=== PATIENT | male | born 1950 | race Caucasian/White ===

== ENCOUNTER 2024-07-21 11:08 | Outpatient (OUT) | payer MEDICARE, SELFPAY ==
--- NOTE | 2024-07-21 11:09 | ECG_ITS ---
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
[2024-07-21 12:04] LABS: Basophils Absolute Auto 0.1 10^3/uL (0.0-0.1); Basophils Percent Auto 0.7 % (0.2-2.0); Eosinophils Absolute Auto 0.3 10^3/uL (0.0-0.7); Eosinophils Percent Auto 4.7 % (0.9-7.0); Hematocrit 44.7 % (42.0-54.0); Hemoglobin 15.3 g/dL (14.0-18.0); Immature Granulocytes Abs Auto 0.02 10^3/uL (0.00-0.03); Immature Granulocytes Pct Auto 0.3 % (0.0-0.5); Lymphocytes Absolute Auto 1.8 10^3/uL (1.2-3.8); Lymphocytes Percent Auto 26.2 % (20.5-60.0); Mean Corpuscular HGB Conc 34.2 g/dL (29.9-35.2); Mean Corpuscular Hemoglobin 31.3 pg (25.9-34.0); Mean Corpuscular Volume 91.4 fL (80.0-94.0); Mean Platelet Volume 10.9 fL (9.5-13.5); Monocytes Absolute Auto 0.7 10^3/uL (0.3-0.8); Monocytes Percent Auto 10.4 % (1.7-12.0); Neutrophils Absolute Auto 3.9 10^3/uL (1.4-6.5); Neutrophils Percent Auto 57.7 % (43.0-75.0); Platelet Count 225 10^3/uL (150-450); Red Blood Count 4.89 10^6/uL (4.70-6.10); Red Cell Distribution Width 12.4 % (11.0-15.0); White Blood Count 6.8 10^3/uL (4.0-11.0)
[2024-07-21 12:05] LABS: Bilirubin Urine NEGATIVE (NEGATIVE); Blood Urine NEGATIVE (NEGATIVE); Clarity Urine CLEAR (CLEAR); Color Urine YELLOW (YELLOW); Glucose Urine UA NEGATIVE (NEGATIVE); Ketones Urine NEGATIVE (NEGATIVE); Leukocyte Esterase Urine NEGATIVE (NEGATIVE); Nitrite Urine NEGATIVE (NEGATIVE); Protein Urine NEGATIVE (NEG/TRACE); Specific Gravity Urine >=1.030 (1.005-1.025); Urobilinogen Urine 0.2 EU/dL (0.2-1.0); pH Urine 5.5 (5.0-9.0)
[2024-07-21 12:08] LABS: Urine Microscopic Indicated NO
[2024-07-21 12:41] LABS: Anion Gap 9.8; BUN Creatinine Ratio 17.2; Calcium 8.5 mg/dL (8.5-10.1); Carbon Dioxide 28.4 mmol/L (21.0-32.0); Chloride 106 mmol/L (98-107); Estimated GFR (African America >60 (>=60 mL/min/1.73m^2); Estimated GFR (Non-African Ame >60 (>=60 mL/min/1.73m^2); Glucose 135 mg/dL (74-106); Potassium 4.2 mmol/L (3.5-5.1); Sodium 140 mmol/L (136-145)
--- NOTE | 2024-07-21 12:59 | PM.PRESUREVA ---
History of Present Illness History of Present Illness Chief complaint: Elevated PSA Narrative: Patient presents for presurgical testing. The patient states he had an abnormal PSA with intermittent urinary frequency and a weak urine stream. He denies abdominal pain, nausea, vomiting, dysuria, hematuria, or any other complaints. Review of Systems ROS Narrative REVIEW OF SYSTEMS: Negative except as stated in HPI, ten or more systems reviewed. Constitutional: No fever, chills, weakness ENT: No sore throat or epistaxis Cardiovascular: No edema, chest pain, or palpitations; admits to dyspnea on exertion Respiratory: No shortness of breath, cough, or wheezing Musculoskeletal: No joint pain or swelling Gastrointestinal: No abdominal pain, constipation, diarrhea, or vomiting Genitourinary: No dysuria or hematuria Neurological: No numbness, tingling, weakness, or headache Psychiatric: No mood changes PFSH [facility] Medical History (Updated 07/21/24 @ 11:57 by Jaclyn Rivera NP) Hydrocele ?N43.3 - Hydrocele, unspecified (ICD-10) Carpal tunnel syndrome ?G56.00 - Carpal tunnel syndrome, unspecified upper limb (ICD-10) Enlarged prostate ?N40.0 - Benign prostatic hyperplasia without lower urinary tract symptoms (ICD-10) Polyp of colon ?K63.5 - Polyp of colon (ICD-10) History of blood transfusion ?Z92.89 - Personal history of other medical treatment (ICD-10) GERD (gastroesophageal reflux disease) ?K21.9 - Gastro-esophageal reflux disease without esophagitis (ICD-10) Shoulder pain ?M25.519 - Pain in unspecified shoulder (ICD-10) Arthritis ?M19.90 - Unspecified osteoarthritis, unspecified site (ICD-10) Sleep apnea ?G47.30 - Sleep apnea, unspecified (ICD-10) Kidney stones ?N20.0 - Calculus of kidney (ICD-10) Elevated PSA ?R97.20 - Elevated prostate specific antigen [PSA] (ICD-10) Seasonal allergies ?J30.2 - Other seasonal allergic rhinitis (ICD-10) Hypertension ?I10 - Essential (primary) hypertension (ICD-10) High cholesterol ?E78.00 - Pure hypercholesterolemia, unspecified (ICD-10) Dyspnea on exertion ?R06.09 - Other forms of dyspnea (ICD-10) Prediabetes ?R73.03 - Prediabetes (ICD-10) S/P extracorporeal shock wave therapy ?Z98.890 - Other specified postprocedural states (ICD-10) Surgical History (Updated 07/21/24 @ 11:57 by Jaclyn Rivera NP) History of cataract extraction with lens replacement History of hydrocelectomy ?Z98.890 - Other specified postprocedural states (ICD-10) History of carpal tunnel surgery ?Z98.890 - Other specified postprocedural states (ICD-10) History of carpal tunnel release ?Z98.890 - Other specified postprocedural states (ICD-10) S/P cataract extraction and insertion of intraocular lens ?Z98.49 - Cataract extraction status, unspecified eye (ICD-10) ?Z96.1 - Presence of intraocular lens (ICD-10) History of colonoscopy ?Z98.890 - Other specified postprocedural states (ICD-10) History of total hip arthroplasty ?Z96.649 - Presence of unspecified artificial hip joint (ICD-10) Family History (Updated 07/21/24 @ 11:31 by Jaclyn Rivera NP) Other Family history of cancer Family history of diabetes mellitus Family history of hypertension Family history of stroke Social History (Updated 07/21/24 @ 11:28 by Jaclyn Rivera NP) Within the past year, how often did you have a drink containing alcohol: monthly or less Smoking status: Never smoker Non-prescribed substance use: denies use Highest level of school completed/degree received: Associate degree: academic program Meds Home Medications and Allergies Home Medications ?Medication ?Instructions ?Recorded ?Confirmed ?Type amlodipine 10 mg-benazepril 20 mg 1 cap PO QPM 07/21/24 07/21/24 History capsule ibuprofen 800 mg tablet (IBU) 800 mg PO Q8H PRN pain 07/21/24 07/21/24 History magnesium citrate 100 mg capsule 100 mg PO DAILY 07/21/24 07/21/24 History metoprolol succinate 100 mg 100 mg PO QPM 07/21/24 07/21/24 History tablet,extended release 24 hr psyllium husk 0.4 gram capsule 0.4 g PO DAILY 07/21/24 07/21/24 History (Metamucil) rosuvastatin 20 mg tablet 20 mg PO QPM 07/21/24 07/21/24 History tamsulosin 0.4 mg capsule 0.4 mg PO Q24H 07/21/24 07/21/24 History Allergies Allergy/AdvReac Type Severity Reaction Status Date / Time Penicillins Allergy Unknown Verified 07/21/24 11:26 Exam Narrative Exam Narrative: Constitutional: Awake, alert, comfortable, well-appearing, nontoxic, interactive, vital signs as charted Head: Normocephalic, atraumatic Neck: Supple, normal appearance, normal range of motion, no meningeal signs, no lymphadenopathy Respiratory: No respiratory distress, breath sounds clear Cardiovascular: Regular rate and rhythm, strong and regular heart tones Abdomen: Nontender, normal bowel sounds, soft, no CVA tenderness Musculoskeletal: Normal gait, no swelling or edema Skin: No rashes or induration, no lesions, only visible skin inspected Neuro: No neurological deficits, normal sensation Psychiatric: Oriented ?3, normal affect Assessment and Plan Assessment and Plan (1) Elevated PSA: (2) Enlarged prostate: Plan MRI fusion transperineal prostate biopsy scheduled with Dr. Teran August 02, 2024.
== END 2024-07-21 11:09 | disposition home or self-care (01) ==
LOC: PST 11:09
PROVIDERS: PCP Internal Medicine; Visit Provider Urology
DX: Z01.810 Encounter for preprocedural cardiovascular examination (principal); Z01.812 Encounter for preprocedural laboratory examination; Z01.818 Encounter for other preprocedural examination; N40.1 Benign prostatic hyperplasia with lower urinary tract symptoms; R97.20 Elevated prostate specific antigen [PSA]
CPT/HCPCS: 36415; 80048; 81003; 85025; 85610; 85730; 93005; G0463

== ENCOUNTER 2024-08-02 11:59 | Day surgery (SDC) | payer MEDICARE, SELFPAY ==
[2024-07-21 11:53] VITALS: BP 124/64; PULSE 59; TEMP 36.6; O2SAT 98; BMI 46.2
[2024-08-02] VITALS (7 sets, daily range): BP systolic 111–173; BP diastolic 66–88; PULSE 52–69; TEMP 36.2; O2SAT 95–97; BMI 45.8
[2024-08-02 12:22] LABS: Partial Thromboplastin Time 26.6 sec (22.3-36.2)
[2024-08-02] MEDS: LACTATED RINGER'S SOLUTION 1,000 ML 50 ML IV (12:48)
[2024-08-02] MEDS: CEFAZOLIN SODIUM 2 GM/50 ML D5W PREMIX IV (13:17)
[2024-08-02 13:35] LABS: INR 1.04
[2024-08-02] MEDS: LIDOCAINE 2% JELLY 20 ML UR (13:49)
[2024-08-02] MEDS: LIDOCAINE HCL 1% 100 MG/10 ML MDV INJ (13:54)
[2024-08-02] MEDS: BACITRACIN OINTMENT 28.4 GM TUBE 1 APPLIC TOPICAL (14:12)
--- NOTE | 2024-08-02 14:29 | PM.URSON ---
Urology Surgery Operative Note Operative Note Procedure Date: 08/02/24 Time Out Performed: yes Pre-op Diagnosis: 1. Elevated PSA 2. Abnormal MRI 3. Bladder stones Post-op Diagnosis: same as pre-op Procedures performed: 1. MRI fusion prostate biopsy, transperineal approach 2. Ultrasound for needle prostate biopsy, transperineal approach 3. Transrectal ultrasound of prostate and seminal vesicles 4. Nerve block of prostate 5. Cystoscopy Anesthesia: MAC Primary Surgeon: Yanni Teran Complications: none Estimated blood loss (mL): 1 Findings: Cysto- Severe bilobar prostatomegaly with significantly elevated bladder neck. At least 5 smooth yellow bladder stones inferior to bladder neck, ~ 7-10 mm each, unable to be evacuated out through cystoscope. VALERAI - R peripheral zone, mid. TRUS R anterior, mid prostate with mild hypoechoic area near large calcification- targeted. SVs wnl. Scattered calcifications within transition zone. Volume: 79.1 cm^3 = 6.9 x 4.0 x 5.6 cm SASHA benign Specimens: 1. Right posterior medial (2 cores) 2. Right posterior lateral (2 cores) 3. Right base (2 cores) 4. Right anterior medial (2 cores) 5. Right anterior lateral (2 cores) 6. Left posterior medial (2 cores) 7. Left posterior lateral (2 cores) 8. Left base (2 cores) 9. Left anterior medial (2 cores) 10. Left anterior lateral (2 cores) 11. VALERIA - right peripheral zone mid (3 cores) Indications for Procedures: 73 year old male with history of elevated PSA 6.3, 27% free on 05/17/24, PSA density 0.06. MRI prostate 07/04/24 showed PIRADS 4 lesion at right peripheral zone, mid gland. Prostate volume 97 ml. He also has a history of BPH with LUTS and bladder stones, which pt states have resolved. On MRI, bladder stones still noted. After discussion of risks/benefits of management options and biopsy approaches, he elected to proceed with MRI fusion transperineal prostate biopsy and cystoscopy. Risks were discussed to include but not limited to bleeding, pain, infection, damage to surrounding structures, hematuria, difficulty urinating, ecchymosis, swelling, injury from positioning, and need for additional procedures. Detailed description of Procedure: After informed consent was obtained, the patient was brought to the operating suite and transferred onto the operating table in supine position. Sequential compression devices were placed on bilateral lower extremities. He received the appropriate dose of preoperative IV antibiotics (Cefazolin 2 g) and MAC anesthesia was induced. They were positioned in modified dorsolithotomy with the appropriate pressure points padded, prepped, and draped in the usual sterile fashion for this procedure. An operative safety timeout was performed confirming the patient's identity, laterality and procedure, and all present agreed to proceed. I began by inserting a 22 [place] rigid cystoscope with 30 degree lens into the patient's urethra and bladder without difficulty. There were no bladder tumors, lesions or foreign bodies. Bilateral ureteral orifices were orthotopic and patent. Findings as above. The bladder was irrigated, however bladder stones too big to be irrigated out. The bladder was drained and cystoscope was removed. His scrotum secured out of the perineum with tape, and the appropriate pressure points padded, prepped and draped in the usual fashion for this procedure. An operative timeout was performed confirming the patient's identity, procedure and safety checks. A digital rectal exam was performed noting findings as above. The [place] UroNav MRI fusion biopsy system was set up over the patient's pelvis for transperineal approach of prostate biopsy. Lidocaine gel was inserted per rectum. A well lubricated biplane transrectal ultrasound probe was inserted into the rectum and the prostate was aligned. The gland was visualized fully in axial and sagittal views to allow for identification of anatomy, volume and location of the urethra as noted in findings. The skin followed by periprostatic local anesthetic lidocaine 1% was delivered. The Precision Point device was placed on the ultrasound probe for transperineal approach. After rendering of real-time images with the preoperative MRI prostate, the UroNav fusion biopsy system was used to target the region of interest. Three core needle biopsies were obtained from the region of interest. Thereafter two biopsies were obtained in a systematic fashion from 10 regions of the prostate including the medial and lateral aspects of the anterior and posterior prostate, as well as base of the right and left lobes. The ultrasound probe was removed and the perineum was cleaned, adequate hemostasis achieved. Wound was dressed with antibiotic ointment, fluffs and scrotal support. The patient was awakened from anesthesia and sent to PACU in stable condition. Plan: Void prior to discharge home. Follow up in 1-2 weeks for pathology review. Other Provider present: No Post Operative care instructions: see discharge instructions
--- NOTE | 2024-08-02 15:37 | PC.NURSE ---
1525: pt attempts to void but is unsuccessful, encouraged pt to drink fluids.
--- NOTE | 2024-08-02 16:51 | PC.NURSE ---
1630: pt ambulates to bathroom with minimal assistance,pt voids without difficulty. no blood noted in urine.
== END 2024-08-02 16:40 | disposition home or self-care (01) ==
PROVIDERS: PCP Internal Medicine; Visit Provider Urology
PROC: (CPT 55700; principal; 2024-08-02 12:30)
DX: C61 Malignant neoplasm of prostate (principal); N21.0 Calculus in bladder; I10 Essential (primary) hypertension; E78.2 Mixed hyperlipidemia; E66.01 Morbid (severe) obesity due to excess calories; G47.33 Obstructive sleep apnea (adult) (pediatric); Z96.649 Presence of unspecified artificial hip joint; Z68.42 Body mass index [BMI] 45.0-49.9, adult; Z79.899 Other long term (current) drug therapy; Z88.0 Allergy status to penicillin
CPT/HCPCS: 55700; 52000; 36415; 85610; 85730; J0690; J2250; J2704; J3010